=== PATIENT | female | born 1950 | race Caucasian/White ===

== ENCOUNTER → 2016-09-21 | Outpatient (CLI) | payer MEDICARE ==
[~2016-09-21] MED LIST: HYDRALAZINE HCL50 MG PO; HYDROCHLOROTHIA25 MG PO; LISINOPRIL PO; LOPRESSOR PO; SIMVASTATIN20 MG PO
--- NOTE | ~2016-09-21 | CR58 ---
[facility] A Service of [facility] RADIOLOGY TEXT RESULTS PATIENT: CHARU LAMAS LOCATION: [facility] : 50 UNIT #: [id number] AGE: [address]: Andryi Juares MD SEX: F ORDER DR: [id number] [place] [id number] O MR#: [id number] Acc #: [id number] NAME: CHARU LAMAS : 1950 SEX: F STUDY DATE/TIME: 09/21/2016 9:42 UNIT: [facility] ROOM: STUDY DESCRIPTION: CR Cervical Spine 2 or 3 Views Attending Physician: Andriy Juares M.D. Referring Physician: Andriy Juares M.D. Ordering Physician: Andriy Juares M.D. Primary Care Physician: Andriy Juares M.D. MEDICAL IMAGING REPORT This report is preliminary unless electronic signature is present. EXAM Cervical spine series, 4 views. DATE OF STUDY 09/21/2016 COMPARISON STUDIES None CLINICAL HISTORY Neck and arm pain for 2 weeks. No known injury. FINDINGS There are degenerative changes including a reversal of lordosis centered at 5-6 and scoliosis, but there is no fracture, bone destruction, prevertebral swelling, or other acute abnormality. Incidentally noted atherosclerotic vascular calcification at the right cervical carotid bifurcation. Dictated by... Jose Alvarado M.D. THIS IS AN ELECTRONICALLY VERIFIED REPORT Jose Alvarado M.D. at 09/21/2016 5:03 PM TEV/tmw TD: 09/21/2016 11:44 JOB #: [id number] [facility] A Service [facility] RADIOLOGY TEXT RESULTS PATIENT: CHARU LAMAS LOCATION: [facility] : 50 UNIT #: [id number] AGE: [address]: Andriy Juares MD SEX: F ORDER DR: MEDICAL IMAGING REPORT
== END | disposition home or self-care (01) ==
LOC: SRAD 09:33
DX: M54.2 Cervicalgia (principal)
CPT/HCPCS: 72040